=== PATIENT | female | born 1985 | race Caucasian/White ===

== ENCOUNTER 2018-10-24 17:36 | Emergency (ER) | payer OTHER ==
[~2018-10-24] VITALS: Ht 157.5 cm; Wt 56.2 kg
== END 2018-10-24 21:03 | disposition home or self-care (01) ==
LOC: ER 17:36
DX: O20.0 Threatened abortion (principal)

== ENCOUNTER 2019-05-12 12:00 | Inpatient (IN) | payer OTHER ==
[~2019-05-12] VITALS: Ht 160 cm; Wt 72.6 kg
== END 2019-05-25 11:41 | disposition home or self-care (01) | DRG 807 ==
LOC: LDR 05-23 06:13 → OB/GYN 05-23 06:39 → LDR 05-23 06:40 → OB/GYN 05-23 12:06
PROVIDERS: ADMIT Obstetrics & Gynecology Maternal & Fetal Medicine
PROC: 10E0XZZ Delivery of Products of Conception, External Approach (ICD-10-PCS; principal; 2019-05-23)
PROC: 10907ZC Drainage of Amniotic Fluid, Therapeutic from Products of Conception, Via Natural or Artificial Opening (ICD-10-PCS; 2019-05-23)
PROC: 0W8NXZZ Division of Female Perineum, External Approach (ICD-10-PCS; 2019-05-23)
PROC: 3E033VJ Introduction of Other Hormone into Peripheral Vein, Percutaneous Approach (ICD-10-PCS; 2019-05-23)
PROC: 4A1HXCZ Monitoring of Products of Conception, Cardiac Rate, External Approach (ICD-10-PCS; 2019-05-23)
DX: O80 Encounter for full-term uncomplicated delivery (principal); Z37.0 Single live birth; Z3A.39 39 weeks gestation of pregnancy

== ENCOUNTER 2019-05-19 12:53 | Outpatient (CLI) | payer OTHER | END 2019-05-19 13:55 | disposition home or self-care (01) | LOC: NST 12:53 | DX: Z34.83 Encounter for supervision of other normal pregnancy, third trimester (principal) ==